=== PATIENT | female | born 1935 | race African-American/Black ===

== ENCOUNTER 2020-12-15 22:00 | Inpatient (IN) | payer BC ==
[~2020-12-15] VITALS: Ht 167.6 cm; Wt 88.4 kg
[~2020-12-15 22:00] MED LIST: AMLO-287 MT; LEVO75TA7 MT; MEMA10TA55 MT; OLAN20TA34 PO; QUET50TA21 MT; VITA50005 PO
[2020-12-15] MEDS ORDERED: SODIUM CHLORIDE 0.9% 1,000 ML IV ONE (22:30)
[2020-12-15 22:45] LABS: BASOPHILS % 0.5 % (0.0-2.0); EOSINOPHILS % 2.3 % (0.0-5.0); HEMATOCRIT. 38.1 % (36.0-48.0); HEMOGLOBIN. 12.2 g/dL (12.0-16.0); LYMPHOCYTES % 53.6 % (20.0-50.0); MEAN CORPUSCULAR HEMOGLOBIN 27.3 pg (28.0-32.0); MEAN CORPUSCULAR VOLUME 85.5 fL (81.0-99.0); MEAN PLATELET VOLUME 8.6 fl (7.4-10.4); MONOCYTES % 8.8 % (2.0-8.0); NEUTROPHILS % 34.8 % (40.0-76.0); PLATELET 148 x1000/uL (130-400); RED BLOOD CELL COUNT 4.45 mill/uL (4.2-5.4); RED CELL DISTRIBUTION WIDTH 15.5 % (11.6-14.6)
[2020-12-15 22:51] LABS: INR 1.1; PROTHROMBIN TIME 11.3 sec (9.6-11.0)
[2020-12-15 22:53] LABS: CHLORIDE 107 mEq/L (98-107)
[2020-12-15 22:57] LABS: ETHANOL BLOOD < 10 mg/dL
[2020-12-16 08:02] LABS: CLARITY URINE CLEAR (CLEAR); COLOR URINE YELLOW (YELLOW); KETONES URINE NEGATIVE (NEGATIVE); LEUKOCYTE ESTERASE URINE TRACE (NEGATIVE); NITRITE URINE NEGATIVE (NEGATIVE); OCCULT BLOOD URINE NEGATIVE (NEGATIVE); PROTEIN URINE NEGATIVE (NEGATIVE); SPECIFIC GRAVITY URINE 1.009 (1.005-1.030)
[2020-12-16] MEDS ORDERED: ACETAMINOPHEN 325MG TABLET PO PRN (09:00)
[2020-12-16] MEDS ORDERED: ONDANSETRON HCL 4MG/2ML INJ IV PRN (09:00)
[2020-12-16 09:10] LABS: *BENZODIAZEPINES SCREEN URINE NEGATIVE (NEGATIVE); *COCAINE SCREEN URINE NEGATIVE (NEGATIVE); METHADONE URINE SCREEN NEGATIVE (NEGATIVE); OPIATES URINE SCREEN NEGATIVE (NEGATIVE)
[2020-12-16 09:11] LABS: *AMPHETAMINES SCREEN URINE NEGATIVE (NEGATIVE); *BARBITURATES SCREEN URINE NEGATIVE (NEGATIVE); CANNABINOID URINE SCREEN NEGATIVE (NEGATIVE); PHENCYCLIDINE URINE SCREEN NEGATIVE (NEGATIVE)
[2020-12-16 10:00] VITALS: BP 156/63
[2020-12-16] MEDS: ASPIRIN 81MG TABLET PO SCH (11:44)
[2020-12-16] MEDS: LORAZEPAM 2MG/ML CPJ IV PRN (11:44)
[2020-12-16] MEDS: ENOXAPARIN 40MG/0.4ML SYR SUBCUT SCH (11:45)
[2020-12-16 12:10] VITALS: BP 153/89
[2020-12-16] MEDS ORDERED: OLAN2.5T29 PO (15:51)
[2020-12-16] MEDS ORDERED: VITAMIN D PO ×2 (15:56)
[2020-12-16 16:15] VITALS: BP 163/96
[2020-12-16] MEDS ORDERED: AMLO5TAB88 PO (18:12)
[2020-12-16 20:00] VITALS: BP 134/98
[2020-12-16] MEDS ORDERED: DEXTROSE 50% WATER 50ML SYRINGE IV PRN (20:15)
[2020-12-16] MEDS: INSULIN LISPRO 100 UNITS/ML SUBCUT SCH (21:00)
[2020-12-16] MEDS: BLOOD SUGAR DIAGNOSTIC STRIP TEST SCH (21:18)
[2020-12-16] MEDS: ATORVASTATIN CALCIUM 40MG TABLET PO SCH (23:25)
[2020-12-16] MEDS: MEMANTINE HCL 10MG TABLET PO SCH (23:25)
[2020-12-16] MEDS: QUETIAPINE FUMARATE 50MG TABLET PO SCH (23:26)
[2020-12-17] VITALS: BP 152/93
[2020-12-17 04:00] VITALS: BP 137/92
[2020-12-17] MEDS: BLOOD SUGAR DIAGNOSTIC STRIP TEST SCH ×4 (06:23→21:00)
[2020-12-17] MEDS: LEVOTHYROXINE SODIUM 75MCG TABLET PO SCH (06:24)
[2020-12-17 07:18] LABS: CHLORIDE 109 mEq/L (98-107)
[2020-12-17 07:30] LABS: LDL CHOLESTEROL 117 mg/dL (5-100)
[2020-12-17 07:31] LABS: HDL CHOLESTEROL 53 mg/dL (40-59)
[2020-12-17] MEDS: INSULIN LISPRO 100 UNITS/ML SUBCUT SCH ×4 (07:50→21:00)
[2020-12-17 08:00] VITALS: BP 156/102
[2020-12-17] MEDS: ASPIRIN 81MG TABLET PO SCH (09:23)
[2020-12-17] MEDS: ENOXAPARIN 40MG/0.4ML SYR SUBCUT SCH (09:23)
[2020-12-17] MEDS: OLANZAPINE 2.5MG TABLET PO SCH (09:23)
[2020-12-17] MEDS: MEMANTINE HCL 10MG TABLET PO SCH ×2 (09:24→22:33)
[2020-12-17] MEDS: AMLODIPINE 10MG TABLET PO SCH (09:24)
[2020-12-17 11:57] LABS: BASOPHILS % 0.3 % (0.0-2.0); EOSINOPHILS % 2.3 % (0.0-5.0); HEMATOCRIT. 37.9 % (36.0-48.0); HEMOGLOBIN. 12.7 g/dL (12.0-16.0); LYMPHOCYTES % 24.7 % (20.0-50.0); MEAN CORPUSCULAR HEMOGLOBIN 28.3 pg (28.0-32.0); MEAN CORPUSCULAR VOLUME 84.5 fL (81.0-99.0); MEAN PLATELET VOLUME 8.4 fl (7.4-10.4); MONOCYTES % 12.5 % (2.0-8.0); NEUTROPHILS % 60.2 % (40.0-76.0); PLATELET 150 x1000/uL (130-400); RED BLOOD CELL COUNT 4.49 mill/uL (4.2-5.4); RED CELL DISTRIBUTION WIDTH 15.3 % (11.6-14.6)
[2020-12-17 12:35] VITALS: BP 140/87
[2020-12-17] MEDS ORDERED: LORAZEPAM 2MG/ML CPJ IV ONE (14:45)
[2020-12-17] MEDS: LORAZEPAM 2MG/ML CPJ IV PRN (15:46)
[2020-12-17 16:34] VITALS: BP 136/85
[2020-12-17 20:00] VITALS: BP 112/75
[2020-12-17] MEDS: QUETIAPINE FUMARATE 50MG TABLET PO SCH (22:32)
[2020-12-17] MEDS: ATORVASTATIN CALCIUM 40MG TABLET PO SCH (22:32)
[2020-12-18] VITALS: BP 115/78
[2020-12-18 04:00] VITALS: BP 150/95
[2020-12-18] MEDS: BLOOD SUGAR DIAGNOSTIC STRIP TEST SCH ×2 (06:46→12:42)
[2020-12-18] MEDS: INSULIN LISPRO 100 UNITS/ML SUBCUT SCH ×2 (06:46→12:42)
[2020-12-18] MEDS: LEVOTHYROXINE SODIUM 75MCG TABLET PO SCH (06:46)
[2020-12-18 08:00] VITALS: BP 123/83
[2020-12-18] MEDS: OLANZAPINE 2.5MG TABLET PO SCH (09:33)
[2020-12-18] MEDS: ASPIRIN 81MG TABLET PO SCH (09:33)
[2020-12-18] MEDS: ENOXAPARIN 40MG/0.4ML SYR SUBCUT SCH (09:34)
[2020-12-18] MEDS: MEMANTINE HCL 10MG TABLET PO SCH (09:34)
[2020-12-18] MEDS: AMLODIPINE 10MG TABLET PO SCH (09:34)
[2020-12-18 12:00] VITALS: BP 119/77
[2020-12-18 13:49] VITALS: BP 119/77
== END 2020-12-18 16:36 | disposition home or self-care (01) | DRG 71 ==
LOC: ER 22:00 → 6WST 12-16 03:15 → EDBEDREQTM 12-16 03:17 → EDBEDREQ 12-16 03:17 → ENRESERV 12-16 08:19
PROVIDERS: ADMIT Internal Medicine; ATTEND Internal Medicine
DX: G93.41 Metabolic encephalopathy (principal); E44.0 Moderate protein-calorie malnutrition; E11.9 Type 2 diabetes mellitus without complications; E78.5 Hyperlipidemia, unspecified; I10 Essential (primary) hypertension; E78.00 Pure hypercholesterolemia, unspecified; F03.90 Unspecified dementia, unspecified severity, without behavioral disturbance, psychotic disturbance, mood disturbance, and anxiety; Z68.31 Body mass index [BMI] 31.0-31.9, adult; Z79.899 Other long term (current) drug therapy; Z20.822 Contact with and (suspected) exposure to COVID-19
CPT/HCPCS: 36415; 70551; 71045; 71250; 80048; 80053; 80061; 80305; 80307; 80320; 80329; 81003; 82962; 83036; 83605; 84484; 85025; 87426; 92610; 93005; 93306; 97162; 97166; 97530; 99291; J1650; J2060; J7030; G0480

== ENCOUNTER 2022-05-01 14:07 | Inpatient (IN) | payer BC ==
[~2022-05-01] VITALS: Ht 154.9 cm; Wt 55.0 kg
[~2022-05-01 14:07] MED LIST changes: -AMLO-287 MT; +AMLO5TAB88 PO; +ATROPINE SULFATE 1MG/10ML SYR ONE; +EPINEPHRINE 0.1MG/ML (1:10,000) 10ML SYR ONE; +ETOMIDATE 2MG/ML 10ML VIAL IV ONE; +OLAN2.5T29 PO; -OLAN20TA34 PO; -QUET50TA21 MT; +QUET50TA23 MT; +SODIUM BICARBONATE 8.4% 1 MEQ/ML 50ML SYR IV ONE; -VITA50005 PO; +VITAMIN D PO
[2022-05-01] MEDS ORDERED: CEFEPIME 1,000 MG in DEXTROSE 5% WATER 50 ML IV STA (14:32)
[2022-05-01] MEDS ORDERED: SODIUM CHLORIDE 0.9% 1000ML BAG (SEPSIS BOLUS) IV ONE (14:45)
[2022-05-01] MEDS ORDERED: VANCOMYCIN 1G PREMIX 200 ML IV ONE (14:45)
[2022-05-01 15:25] LABS: BASOPHILS % 0.3 % (0.0-2.0); HEMATOCRIT. 30.8 % (36.0-48.0); HEMOGLOBIN. 9.5 g/dL (12.0-16.0); LYMPHOCYTES % 35.4 % (20.0-50.0); MEAN CORPUSCULAR HEMOGLOBIN 27.1 pg (28.0-32.0); MEAN CORPUSCULAR VOLUME 87.4 fL (81.0-99.0); MEAN PLATELET VOLUME 9.4 fl (7.4-10.4); MONOCYTES % 8.8 % (2.0-8.0); NEUTROPHILS % 54.5 % (40.0-76.0); PLATELET 252 x1000/uL (130-400); RED BLOOD CELL COUNT 3.52 mill/uL (4.2-5.4)
[2022-05-01 15:29] LABS: CHLORIDE 110 mEq/L (98-107)
[2022-05-01] MEDS ORDERED: NOREPINEPHRINE 8MG/250ML PMX 250 ML IV ONE (15:30)
[2022-05-01] MEDS ORDERED: VASOPRESSIN 20 UNIT in SODIUM CHLORIDE 0.9% 99 ML IV SCH ×2 (16:24→16:45)
[2022-05-01] MEDS ORDERED: KCL 20MEQ/100ML PREMIX 100 ML IV NR (16:45)
[2022-05-01] MEDS ORDERED: VANCOMYCIN 1G PREMIX 200 ML IV NR (16:45)
[2022-05-01] MEDS ORDERED: VANCOMYCIN 1,000 MG in DEXT 5% WATER 250 ML IV NR (16:45)
[2022-05-01] MEDS ORDERED: EPINEPHRINE 10 MG in SODIUM CHLORIDE 0.9% 240 ML IV STA (16:56)
[2022-05-01] MEDS ORDERED: HYDROCORTISONE SOD SUCCINATE 100 MG/2 ML VIAL IV ONE (17:00)
[2022-05-01] MEDS ORDERED: EPINEPHRINE 10 MG in SODIUM CHLORIDE 0.9% 240 ML IV SCH (17:30)
[2022-05-01] MEDS ORDERED: PHENYLEPHRINE 50 MG in DEXT 5% WATER 245 ML IV STA (18:29)
[2022-05-01] MEDS ORDERED: SUCCINYLCHOLINE CHLORIDE 200MG/10ML IV ONE (18:30)
[2022-05-01] MEDS ORDERED: FENTANYL 2500MCG/250ML PMX 250 ML IV ONE (18:30)
[2022-05-01] MEDS ORDERED: MIDAZOLAM HCL 100 MG in DEXT 5% WATER 80 ML IV ONE (18:30)
[2022-05-01] MEDS ORDERED: ETOMIDATE 2MG/ML 10ML VIAL IV ONE (18:30)
[2022-05-01] MEDS ORDERED: FENTANYL CITRATE/PF 2,500 MCG in SODIUM CHLORIDE 0.9% 200 ML IV NR (18:45)
[2022-05-01] MEDS ORDERED: PHENYLEPHRINE 100 MG in DEXT 5% WATER 240 ML IV NR (18:45)
[2022-05-01] MEDS ORDERED: MIDAZOLAM HCL 100 MG in SODIUM CHLORIDE 0.9% 80 ML IV NR (18:45)
[2022-05-01] MEDS ORDERED: AMIODARONE HCL 900 MG in DEXT 5% WATER 482 ML IV PRN ×4 (19:30)
[2022-05-01] MEDS ORDERED: AMIODARONE HCL 150 MG in DEXT 5% WATER 100 ML IV ONE (19:30)
[2022-05-01 21:30] VITALS: BP 53/26
[2022-05-01] MEDS ORDERED: DOPAMINE 400MG/250ML PREMIX 250 ML IV ONE (21:30)
== END 2022-05-01 21:52 | DRG 871 ==
LOC: ER 14:07 → EDBEDREQTM 16:26 → EDBEDREQ 17:06 → EDBEDREQSVC 17:06 → ENRESERV 18:11 → CANRESERV 18:11 → MICUSO 19:09 → EDBEDREQ 19:10
PROVIDERS: ADMIT Internal Medicine; ATTEND Internal Medicine
PROC: 0BH17EZ Insertion of Endotracheal Airway into Trachea, Via Natural or Artificial Opening (ICD-10-PCS; principal; 2022-05-01)
PROC: 5A1935Z Respiratory Ventilation, Less than 24 Consecutive Hours (ICD-10-PCS; 2022-05-01)
PROC: 5A12012 Performance of Cardiac Output, Single, Manual (ICD-10-PCS; 2022-05-01)
PROC: 5A2204Z Restoration of Cardiac Rhythm, Single (ICD-10-PCS; 2022-05-01)
PROC: B54CZZA Ultrasonography of Left Lower Extremity Veins, Guidance (ICD-10-PCS; 2022-05-01)
PROC: 06HY33Z Insertion of Infusion Device into Lower Vein, Percutaneous Approach (ICD-10-PCS; 2022-05-01)
DX: A41.9 Sepsis, unspecified organism (principal); I46.9 Cardiac arrest, cause unspecified; R65.21 Severe sepsis with septic shock; I47.2 Ventricular tachycardia; E11.9 Type 2 diabetes mellitus without complications; E78.00 Pure hypercholesterolemia, unspecified; Z20.822 Contact with and (suspected) exposure to COVID-19; I10 Essential (primary) hypertension; Z79.01 Long term (current) use of anticoagulants; Z93.1 Gastrostomy status; Z86.718 Personal history of other venous thrombosis and embolism; Z86.711 Personal history of pulmonary embolism; Z79.899 Other long term (current) drug therapy
CPT/HCPCS: 31500; 36415; 71045; 80053; 82962; 83605; 83880; 84145; 84484; 85025; 87426; 93005; 94002; 99291; C9803; J0282; J0461; J0692; J1265; J1720; J2250; J2370; J3010; J3370; J3480; J3490; J7030; J7050; J7060